=== PATIENT | male | born 1975 | race Caucasian/White ===

== ENCOUNTER 2017-01-22 17:52 | Observation (INO) | payer OTHER ==
[~2017-01-22] VITALS: Ht 175.3 cm; Wt 100.3 kg
[2017-01-22] MEDS ORDERED: ASPIRIN 81 MG TABLET CHEW PO ONE (18:30)
[2017-01-22 18:45] LABS: BLOOD UREA NITROGEN 27 mg/dL (7-18)
[2017-01-22] MEDS ORDERED: ASPIRIN 81 MG TABLET CHEW ONE (18:57)
[2017-01-22 18:58] LABS: IS PT STATUS REG ER OR PRE ER? YES
[2017-01-22] MEDS ORDERED: morphine SULFATE 10 MG/ML, 1ML IVPush PRN (20:00)
[2017-01-22] MEDS ORDERED: ZOLPIDEM 5MG TABLET PO PRN (20:00)
[2017-01-22] MEDS ORDERED: ACETAMINOPHEN 325 MG TABLET PO PRN (20:00)
[2017-01-22] MEDS ORDERED: ONDANSETRON 2MG/ML, 2ML IVPush PRN (20:00)
[2017-01-22] MEDS ORDERED: NITROGLYCERIN 0.4 MG BOTTLE (25 TABS) SL PRN (20:00)
[2017-01-22 20:50] VITALS: BP 127/92
[2017-01-22] MEDS ORDERED: ENOXAPARIN 40 MG/0.4 ML SQ SCH (21:00)
[2017-01-22] MEDS: SODIUM CHLORIDE FLUSH 10ML SYR IVF SCH (22:28)
[2017-01-23 00:03] LABS: IS PT STATUS REG ER OR PRE ER? NO
[2017-01-23 01:13] VITALS: BP 127/85
[2017-01-23] MEDS ORDERED: ASPIRIN 325 MG TABLET EC PO SCH (06:00)
[2017-01-23 06:27] LABS: IS PT STATUS REG ER OR PRE ER? NO
[2017-01-23 07:08] VITALS: BP 117/79
[2017-01-23] MEDS: SODIUM CHLORIDE FLUSH 10ML SYR IVF SCH (08:09)
== END 2017-01-23 12:24 | disposition home or self-care (01) ==
LOC: ED 19:00 → EDIP 19:11 → INTOOBSV 19:11 → SUATTDRO 19:22 → ED 19:35 → 5SO 20:34 → DCLOUNGE 01-23 12:11
DX: R07.89 Other chest pain (principal); E78.5 Hyperlipidemia, unspecified; F14.90 Cocaine use, unspecified, uncomplicated; Z82.49 Family history of ischemic heart disease and other diseases of the circulatory system
CPT/HCPCS: 36415; 71010; 80048; 80061; 82040; 84484; 85025; 93005; 93017; 96372; 99285; G0378; J1650

== ENCOUNTER 2017-07-06 16:58 | Emergency (ER) | payer OTHER ==
[~2017-07-06] VITALS: Ht 175.3 cm; Wt 98.0 kg
[2017-07-06] MEDS ORDERED: SODIUM CHLORIDE FLUSH 10ML SYR IVF ONE (18:00)
[2017-07-06 18:05] LABS: BASOPHILS # (AUTO) 0.02 x10^3/uL (0-0.1); BASOPHILS % (AUTO) 0 % (0-1); EOSINOPHILS # (AUTO) 0.03 x10^3/uL (0-0.4); EOSINOPHILS % (AUTO) 0 % (1-7); LYMPHOCYTES # (AUTO) 1.87 x10^3/uL (1-3.4); LYMPHOCYTES % (AUTO) 26 % (22-44); MD NO; MEAN CORPUSCULAR HEMOGLOBIN 30.5 pg (27.5-34.5); MEAN CORPUSCULAR HGB CONC 34.2 g/dL (33.2-36.2); MEAN CORPUSCULAR VOLUME 89.2 fL (81-97); MEAN PLATELET VOLUME 8.3 fL (7.4-10.4); MONOCYTES # (AUTO) 0.39 x10^3/uL (0.2-0.8); MONOCYTES % (AUTO) 5 % (2-9); NEUTROPHILS # (AUTO) 4.98 x10^3/uL (1.8-6.8); NEUTROPHILS % (AUTO) 68 % (42-75); PLATELET COUNT 245 x10^3/uL (130-400); RED BLOOD COUNT 5.12 x10^6/uL (4.38-5.82); RED CELL DISTRIBUTION WIDTH 13.1 % (9.4-14.8)
[2017-07-06 18:16] LABS: ALANINE AMINOTRANSFERASE 31 U/L (12-78); ANION GAP 7 mmol/L (5-15); CALCIUM 8.9 mg/dL (8.5-10.1); CHLORIDE 107 mmol/L (98-107); CREATININE 1.17 mg/dL (0.7-1.3)
[2017-07-06 18:18] LABS: ALKALINE PHOSPHATASE 68 U/L (45-117); BILIRUBIN,TOTAL 0.4 mg/dL (0.2-1.0); TOTAL PROTEIN 7.8 g/dL (6.4-8.2)
[2017-07-06 19:35] LABS: MICROSCOPIC NOT IND
[2017-07-06 19:38] LABS: CULTURE INDICATED? NO
[2017-07-06] MEDS ORDERED: OMNIPAQUE 350 MG/ML, 100ML BOTTLE ONE (21:00)
[2017-07-06 21:48] VITALS: BP 112/82
== END 2017-07-06 21:51 | disposition home or self-care (01) ==
LOC: ED 20:51
DX: K62.5 Hemorrhage of anus and rectum (principal)
CPT/HCPCS: 36415; 74177; 80053; 81003; 83690; 85025; 99285; Q9967